=== PATIENT | female | born 1995 | race Hispanic/Latino ===

== ENCOUNTER 2017-03-31 07:06 | Emergency (ER) | payer SELFPAY ==
[2017-03-31 07:17] VITALS: BP 116/78; PULSE 72; RESP 18; TEMP 98.1; O2SAT 100
[2017-03-31] MEDS ORDERED: Tetanus/Diphtheria Toxoids 0.5 ml Syringe IM ONE ×2 (07:40→07:44)
[2017-03-31] MEDS ORDERED: Bacitracin 500 Units/gm Oint Foilpak UD TOP ONE (07:40)
--- NOTE | 2017-03-31 07:41 | C.PDOC ---
History Of Present Illness 21 yr old female presents to the ER s/p fall from a motorized skateboard, FISHER TERRAPIN. Patient reports of multiple abrasions and contusions. States she had on a helmet and wrist gaurds. Patient reports of injury to RUE, bilateral knees, right abdominal wall and to the right side of face. Denies LOC, vision changes, nausea, vomiting, focal weakness or dizziness. SP FALL OFF MOTORIZED SKATEBOARD ONSET FISHER TERRAPIN W MULTIPLE ABRASIONS AND CONTUSIONS. +HELMET, WRIST GUARDS. NO LOC. R UE, B/L KNEES, R ABD WALL AND R FACE INJURY. NO NV, FOCAL WEAKNESS. EXAM NAD NONTOXIC HEENT SUPERFICIAL ABRASIONS R LOWER FACE. EOMI, ATRAUM; NOSE ATRAUM; MOUTH ATRAUM; NO SCALP INJURY CSPINE NEG NONTEND ATRAUM CHEST ATRAUM ABD NEG EXT RUE: +SWELL PROX R FOREARM MIN LOCAL TEND; FULL AROM SHOULDER, ELBOW WRIST WO DIFF. B/L LE: FULL ROM HIPS, KNEES ANKLE WO DIFF SKIN +MULT ABRASIONS R SHOULDER, ELBOW, FOREARM, B/L KNEES, R LAT ABD WALL. CLEAN, NO FB OR ACTIVE BLEEDING NEURO INTACT GAIT WNL REMAINDER NEG MDM AROM WO DIFF. NO SIGNS CONCUSSION. PT OFFERED XRAYS BUT DEFERRED. TETANUS, LOCAL WOUND CARE - HPI Time Seen by Provider: 03/31/17 07:26 Chief Complaint (Nursing): Trauma History Per: Patient History/Exam Limitations: no limitations Onset/Duration Of Symptoms: Sudden Onset (FISHER TERRAPIN) Past Medical History Reviewed: Historical Data, Nursing Documentation, Vital Signs Vital Signs: Last Vital Signs Temp 98.1 F 03/31/17 07:12 Pulse 72 03/31/17 07:12 Resp 18 03/31/17 07:12 BP 116/78 03/31/17 07:12 Pulse Ox 100 03/31/17 07:47 Family History: States: No Known Family Hx - Social History Hx Alcohol Use: No Hx Substance Use: No - Immunization History Hx Tetanus Toxoid Vaccination: No Hx Influenza Vaccination: No Hx Pneumococcal Vaccination: No Review Of Systems Except As Marked, All Systems Reviewed And Found Negative. Eyes: Negative for: Vision Change Gastrointestinal: Negative for: Nausea, Vomiting Skin: Positive for: Other (Multiple abrasions and contusions to RUE, bilateral knees, right abdomen wall and right side of face) Neurological: Negative for: Weakness, Numbness, Dizziness Physical Exam - Physical Exam Appears: Non-toxic, No Acute Distress Skin: Warm, Dry, Other ((+) Superfical abrasions to the right lower face. Multiple abrasions to the right shoulder, elbow, forearm, bilateral knees, right lateral abdominal wall. Clean no active bleeding. ) Head: Atraumatic Eye(s): bilateral: Normal Inspection, PERRL, EOMI Nose: Normal, No Deformity Oral Mucosa: Moist Tongue: Normal Appearing Lips: Normal Appearing, No Swelling Neck: Normal, Normal ROM, No Midline Cervical Tenderness, Supple Chest: Symmetrical, No Tenderness Cardiovascular: Rhythm Regular, No Murmur Respiratory: Normal Breath Sounds, No Rales, No Rhonchi, No Wheezing Gastrointestinal/Abdominal: Normal Exam, Soft, No Tenderness, No Guarding, No Rebound Extremity: Normal ROM (Full ROM to the shoulder, elbow and wrist no difficulty. Bilateral lower extremity, full ROM to hips, knees, ankles. No difficulty.), Other ((+) RUE, swelling to the proximal right forearm, minical local tenderness. ) Neurological/Psych: Oriented x3, Normal Speech, Normal Motor, Normal Reflexes Gait: Steady ED Course And Treatment O2 Sat by Pulse Oximetry: 100 (RA) Pulse Ox Interpretation: Normal Disposition Counseled Patient/Family Regarding: Diagnosis, Need For Followup - Disposition Referrals: YOUR,PMD [Other] Disposition: HOME/ ROUTINE Disposition Time: 07:38 Condition: IMPROVED Additional Instructions: TOPICAL ANTIBACTERIAL TREATMENT WITH CLEAN DRESSING CHANGE TWICE DAILY. ICE TO AFFECTED AREAS. RETURN IF WORSENING SYMPTOMS. Instructions: Contusion in Adults (ED), Abrasion (ED) Forms: [employer] (Lithuanian) - Clinical Impression Clinical Impression: Abrasions of multiple sites, Fall, Multiple contusions - Scribe Statement The provider has reviewed the documentation as recorded by the Juanitoibmargarita Mcdonald Provider Attestation: All medical record entries made by the Scribe were at my direction and personally dictated by me. I have reviewed the chart and agree that the record accurately reflects my personal performance of the history, physical exam, medical decision making, and the department course for this patient. I have also personally directed, reviewed, and agree with the discharge instructions and disposition.
[2017-03-31] MEDS ORDERED: Bacitracin 500 Units/gm Oint Foilpak UD ONE (07:43)
== END 2017-03-31 08:04 | disposition home or self-care (01) ==
LOC: C.ER 07:06
DX: S00.81XA Abrasion of other part of head, initial encounter (principal); S40.211A Abrasion of right shoulder, initial encounter; S50.312A Abrasion of left elbow, initial encounter; S50.811A Abrasion of right forearm, initial encounter; S80.212A Abrasion, left knee, initial encounter; S80.211A Abrasion, right knee, initial encounter; S30.811A Abrasion of abdominal wall, initial encounter; T14.8XXA Other injury of unspecified body region, initial encounter; V00.138A Other skateboard accident, initial encounter

== ENCOUNTER 2017-04-08 08:31 | Emergency (ER) | payer SELFPAY ==
[2017-04-08 08:39] VITALS: O2SAT 100
--- NOTE | 2017-04-08 09:39 | C.PDOC ---
History Of Present Illness 21-year-old female presents to the emergency department with complaints of right elbow pain. Patient states she fell off a skateboard on 04/04/17, and was seen in ER; Patient didn not want x-rays at the time, but returns today due to persistent pain. Patient denies any new injuries, numbness/weakness, fever. Time Seen by Provider: 04/08/17 08:56 Chief Complaint (Nursing): Upper Extremity Problem/Injury History Per: Patient History/Exam Limitations: no limitations Onset/Duration Of Symptoms: Days Current Symptoms Are (Timing): Still Present Quality: "Pain" Severity: Moderate Past Medical History Reviewed: Historical Data, Nursing Documentation, Vital Signs Vital Signs: Last Vital Signs Temp 98.2 F 04/08/17 10:06 Pulse 71 04/08/17 10:06 Resp 20 04/08/17 10:06 BP 112/79 04/08/17 10:06 Pulse Ox 100 04/08/17 10:20 Family History: States: No Known Family Hx - Social History Hx Alcohol Use: No Hx Substance Use: No - Immunization History Hx Tetanus Toxoid Vaccination: No Hx Influenza Vaccination: No Hx Pneumococcal Vaccination: No Review Of Systems Except As Marked, All Systems Reviewed And Found Negative. Constitutional: Negative for: Fever, Chills Gastrointestinal: Negative for: Nausea, Vomiting Musculoskeletal: Positive for: Arm Pain (right elbow pain ) Neurological: Negative for: Weakness, Numbness, Headache Physical Exam - Physical Exam Appears: Well, Non-toxic, No Acute Distress, Other (Mild pain) Skin: Normal Color, Warm, Dry, No Rash Oral Mucosa: Moist Cardiovascular: Rhythm Regular Respiratory: Normal Breath Sounds, No Rales, No Rhonchi, No Wheezing Extremity: Capillary Refill (< 2 sec all digits ), Other (Right elbow is mildly swollen and diffusely tender to palpation. There is a healing abrasion to the proximal lateral forearm that is approx 4cm in length. Wrist and shoulder are nontender with normal ROM. ) Pulses: Left Radial: Normal, Right Radial: Normal Neurological/Psych: Oriented x3, Normal Motor, Normal Sensation ED Course And Treatment O2 Sat by Pulse Oximetry: 100 (RA) Pulse Ox Interpretation: Normal - Other Rad RIGHT ELBOW XRAY X-Ray: Interpreted by Me, Viewed By Me (comminuted, nondisplaced proximla ulna fx) Progress Note: Xray of elbow ordered and reviewed. Patient given PO Tylenol. XRay shows comminuted fracture of proximal ulna. Patient placed in posterior low arm splint by emissions testing technician and checked by me, (+) NV intact. Patient given Rx for pain medication and instructed to follow up with orthopedics within 1 week. She understands she should return to ED if her symptoms worsen. Reevaluation Time: 09:55 Reassessment Condition: Improved Disposition Counseled Patient/Family Regarding: Studies Performed, Diagnosis, Need For Followup, Rx Given - Disposition Referrals: Kingsley Peña MD [Staff Provider] - Disposition: HOME/ ROUTINE Disposition Time: 09:55 Condition: STABLE Additional Instructions: FOLLOW UP WITH ORTHOPEDICS WITHIN 1 WEEK USE PAIN MEDICATIONS NEEDED RETURN TO ER IF SYMPTOMS WORSEN Prescriptions: Hydrocodone/Acetaminophen [Hydrocodon-Acetaminophen 5-325] 1 each PO Q6 PRN #15 tablet PRN Reason: Pain, Moderate (4-7) Instructions: Elbow Fracture in Adults (ED) Forms: [employer] (Serbian) Print Language: TELUGU - POA Present On Arrival: None - Clinical Impression Clinical Impression: Elbow fracture, right - Scribe Statement The provider has reviewed the documentation as recorded by the Scribe (Alysha Coffey) All medical record entries made by the Scribe were at my direction and personally dictated by me. I have reviewed the chart and agree that the record accurately reflects my personal performance of the history, physical exam, medical decision making, and the department course for this patient. I have also personally directed, reviewed, and agree with the discharge instructions and disposition.
[2017-04-08 10:07] VITALS: BP 112/79; PULSE 71; RESP 20; TEMP 98.2
--- NOTE | 2017-04-08 14:05 | RAD ---
PROCEDURE: Radiographs of the right elbow. HISTORY: right elbow pain after fall COMPARISON: No prior. FINDINGS: BONES: Comminuted slightly displaced fracture at the olecranon process of the right ulnar bone is noted. JOINTS: Normal. No osteoarthritis. SOFT TISSUES: Normal. JOINT EFFUSION: There is a small joint effusion OTHER FINDINGS: None. IMPRESSION: Acute comminuted fractures at the proximal right ulnar bone involving the mid and proximal portion of the olecranon process.
== END 2017-04-08 10:08 | disposition home or self-care (01) ==
LOC: C.ER 08:31
DX: S52.091D Other fracture of upper end of right ulna, subsequent encounter for closed fracture with routine healing (principal); V00.131D Fall from skateboard, subsequent encounter